=== PATIENT | female | born 1940 | race Caucasian/White ===

== ENCOUNTER 2023-08-22 16:21 | Emergency (ER) | payer MEDICARE, OTHER, SELFPAY ==
[2023-08-22 16:35] VITALS: BP 160/79; PULSE 57; RESP 16; TEMP 36.6; O2SAT 99; BMI 24.9
--- NOTE | 2023-08-22 16:43 | ED.HEATRA ---
HPI - Head Injury <James Green PA-C - Last Filed: 08/22/23 17:29> General Chief complaint: Head Injury Stated complaint: Head injury, no thinners Time Seen by Provider: 08/22/23 16:43 Source: patient Mode of arrival: Ambulatory History of Present Illness HPI Narrative: This is a 83-year-old female presents emergency department due to a head injury sustained about 7 hours ago. She was standing up but she would the back of the head against a beam. She had not lose conscious. She did fall to the ground but does not report any other pain to her extremities. She denies any slurred speech, weakness, or any other concerning signs or symptoms. Not on blood thinners. Denies any neck pain. Tetanus is up-to-date. Related Data Home Medications Medication Instructions Recorded Confirmed atenolol 25 mg tablet 25 mg PO DAILY 08/22/23 08/22/23 rosuvastatin 5 mg tablet 5 mg PO DAILY 08/22/23 08/22/23 triamterene 37.5 1 cap PO DAILY 08/22/23 08/22/23 mg-hydrochlorothiazide 25 mg capsule Allergies Allergy/AdvReac Type Severity Reaction Status Date / Time No Known Drug Allergies Allergy Verified 08/22/23 16:40 Review of Systems <James Green PA-C - Last Filed: 08/22/23 17:29> Review of Systems Narrative: GENERAL: Denies chills, fatigue, malaise, fever, sweats. HEENT: Denies sinus pain, ear pain, sore throat, difficulty swallowing, dizziness. RESPIRATORY: Denies dyspnea, cough, wheezing, hemoptysis, sputum. CARDIOVASCULAR: Denies chest pain, palpitations, orthopnea, edema, GASTROINTESTINAL: Denies nausea, vomiting, abdominal pain, diarrhea, constipation, melena. : Denies dysuria, frequency, incontinence, hematuria, urinary retention. MUSCULOSKELETAL: denies weakness, joint pain, or bony pain SKIN: Posterior scalp laceration NEUROLOGIC: Denies weakness, headache, numbness, change in speech, confusion, seizures, incoordination. PSYCHIATRIC: No concerning psychosocial issues. 12 point review of systems is negative except for those stated above Patient History <James Green PA-C - Last Filed: 08/22/23 17:29> Social History Smoking Status: Never smoker Smoking Status: Never smoker alcohol intake frequency: 0-2 drinks per day Alcohol type: wine Substance Use Type: does not use Exam <JUDAH Goldberg Last Filed: 08/22/23 17:29> Narrative Exam Narrative: GENERAL: Well-developed patient, in mild distress. HEAD: Atraumatic. Normocephalic. EYES: Pupils equal round and reactive. Extraocular motions intact. No scleral icterus. No injection or drainage. ENT: Nose without bleeding, purulent drainage. Throat without erythema, tonsillar hypertrophy or exudate. Airway patent. NECK: Trachea midline. Non tender EXTREMITIES: No edema or joint tenderness. NEURO: AOx3. SKIN: Approximately 6 cm in length superficial laceration to the posterior scalp Initial Vital Signs Initial Vital Signs: Vital Signs Temperature 98 F 08/22/23 16:35 Pulse Rate 57 L 08/22/23 16:35 Respiratory Rate 16 08/22/23 16:35 Blood Pressure 160/79 H 08/22/23 16:35 Pulse Oximetry 99 08/22/23 16:35 Oxygen Delivery Method Room Air 08/22/23 16:35 <Veronica Aleman DO - Last Filed: 08/22/23 19:10> Initial Vital Signs Initial Vital Signs: Vital Signs Temperature 98 F 08/22/23 16:35 Pulse Rate 57 L 08/22/23 16:35 Respiratory Rate 16 08/22/23 16:35 Blood Pressure 160/79 H 08/22/23 16:35 Pulse Oximetry 99 08/22/23 16:35 Oxygen Delivery Method Room Air 08/22/23 16:35 Procedures <JUDAH Goldberg Last Filed: 08/22/23 17:29> Laceration Repair Laceration 1: Time of procedure: 17:06 Site: scalp Side (If applicable): right Size (cm): 6 Description: linear Depth: simple, single layer Local Anesthetic: lidocaine 1% and with epi Amount of anesthesia used (mL): 5 Pre-repair: irrigated extensively Skin layer closed with: sharon (9) Course <JUDAH Goldberg Last Filed: 08/22/23 17:29> Orders Ordered: Discontinued Medications Lidocaine/Epinephrine (Lidocaine 1% W/Epi) 4 ml INJ INTRA-OP ONE Stop: 08/22/23 17:05 Last Admin: 08/22/23 17:20 Dose: 4 ml Documented By: PHILLY Vital Signs Vital signs: Vital Signs - 8 hr 08/22/23 16:35 08/22/23 17:38 Temperature 98 F Pulse Rate 57 L 57 L Respiratory Rate 16 16 Blood Pressure 160/79 H 136/85 Pulse Oximetry 99 97 Oxygen Delivery Method Room Air Room Air <Veronica Aleman DO - Last Filed: 08/22/23 19:10> Orders Ordered: Discontinued Medications Lidocaine/Epinephrine (Lidocaine 1% W/Epi) 4 ml INJ INTRA-OP ONE Stop: 08/22/23 17:05 Last Admin: 08/22/23 17:20 Dose: 4 ml Documented By: JG Vital Signs Vital signs: Vital Signs - 8 hr 08/22/23 16:35 08/22/23 17:38 Temperature 98 F Pulse Rate 57 L 57 L Respiratory Rate 16 16 Blood Pressure 160/79 H 136/85 Pulse Oximetry 99 97 Oxygen Delivery Method Room Air Room Air MDM - Head Injury <James Green PA-C - Last Filed: 08/22/23 17:29> MDM Narrative Medical decision making narrative: ED course: This is a 83-year-old female presenting to the emergency department due to a scalp laceration to posterior scalp. This was closed without complications using sharon. She had a very reassuring neuro exam isn't reporting any concerning symptoms that would necessitate any advanced imaging. Patient will follow up with primary care for staple removal. CC: Scalp laceration Complicating co-morbidities: None Data collected from: Previous notes Medical records reviewed: Patient was not been to this emergency department the past Differential considered, but not limited to: Laceration, intracranial bleed, skull fracture Exam documented above, pertinent findings include: Laceration, reassuring neuro exam Lab Test results independently reviewed as above. Pertinent findings: None obtained Imaging studies independently reviewed: None obtained Scores Used: None MIPS Elements: None Consultations: None Treatments: Laceration repair with sharon Re-evaluations: None Discussion: Discussed plan with the patient was comfortable with the plan Diagnosis: Scalp laceration Disposition: see below, along with detailed discharge instructions that have been reviewed with patient as well as indications for ED re-evaluation and additional outpatient follow up Discharge Plan Departure Patient Disposition: Home Clinical Impression: Laceration of scalp Activity Restrictions/Additional Instructions: Thank you for coming to the [facility] Emergency Department today. I am glad we are able to close the laceration to scalp. Please follow up with the primary care provider or walk-in clinic for staple removal in 10-14 days. Please return to the emergency department if you develop any slurred speech, weakness, nausea vomiting, or any other concerning signs or symptoms. I hope you feel better soon. Please follow up with your primary care provider within a week if your symptoms continue. If you do not have a primary care provider please contact the [facility] Resource line at [phone]. They will ask some questions about your medical history and help you get set up with a provider in the community. Prescriptions: No Action atenolol 25 mg tablet 25 mg PO DAILY triamterene-hydrochlorothiazid 37.5-25 mg capsule 1 cap PO DAILY rosuvastatin 5 mg tablet 5 mg PO DAILY Stand Alone Forms: Patient Portal/API ED Sign-out <Veronica Aleman DO - Last Filed: 08/22/23 19:10> Cosign ED Attending Julietature Attestation: I was immediately available in the department for consultation.
[2023-08-22] MEDS: LIDOCAINE 1% W/EPI 4 ML INJ (17:20)
[2023-08-22 17:38] VITALS: BP 136/85; PULSE 57; RESP 16; O2SAT 97
== END 2023-08-22 17:35 | disposition home or self-care (01) ==
PROVIDERS: Emergency Provider Physician Assistant Medical
DX: S01.01XA Laceration without foreign body of scalp, initial encounter (principal); W22.8XXA Striking against or struck by other objects, initial encounter
CPT/HCPCS: 12002; 99282; 99283